=== PATIENT | female | born 1970 | race Caucasian/White ===

== ENCOUNTER 2018-09-20 19:32 | Emergency (ER) | payer BC ==
[2018-09-20] MEDS ORDERED: Ketorolac 60 MG/2 ML SDV IM ONE (20:30)
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
== END 2018-09-20 22:49 | disposition home or self-care (01) ==
LOC: FB.ED 19:32
DX: S16.1XXA Strain of muscle, fascia and tendon at neck level, initial encounter (principal); S00.93XA Contusion of unspecified part of head, initial encounter; S40.011A Contusion of right shoulder, initial encounter; Z88.6 Allergy status to analgesic agent; Z88.8 Allergy status to other drugs, medicaments and biological substances; V89.2XXA Person injured in unspecified motor-vehicle accident, traffic, initial encounter
CPT/HCPCS: 72050; 73030; 81001; 96372; 99283; J1885